=== PATIENT | female | born 1935 | race Caucasian/White ===

== ENCOUNTER 2019-12-27 13:09 | Emergency (ER) | payer MEDICARE ==
[~2019-12-27] VITALS: Ht 170.2 cm; Wt 122.5 kg
[~2019-12-27 13:09] MED LIST: ACTOS45 MG PO; ENALAPRIL MALEA20 MG PO; K DUR10 MEQ PO; LASIX40 MG PO; LEVOTHYROXINE75 MCG PO; LIPITOR10 MG PO; METOPROLOL TART50 MG PO; PLAVIX75 MG PO; VENTOLIN HFA18 GM IH; VERAPAMIL HCL120 MG PO; VICODIN 5-5001 EACH PO; ZETIA10 MG PO
[2019-12-27] MEDS ORDERED: VANCOMYCIN 1GM/NS 250 ML 250 ML IV ONE (14:15)
[2019-12-27 14:30] LABS: BASOPHILS % 0.1 % (0.0-1.0); EOSINOPHILS % 0.1 % (0.0-6.0); HEMATOCRIT 38.7 % (34.2-44.1); HEMOGLOBIN 12.2 g/dL (12.0-16.0); LYMPHOCYTES # (AUTO) 1.4 (1.0-3.2); LYMPHOCYTES % 9.8 % (18.0-39.1); MEAN CORPUSCULAR HEMOGLOBIN 31.3 pg (28-32); MEAN CORPUSCULAR HGB CONC 31.5 g/dL (31-35); MEAN CORPUSCULAR VOLUME 99.2 fL (81-99); MONOCYTES # (AUTO) 1.1 (0.2-0.8); MONOCYTES % 7.6 % (4.4-11.3); NEUTROPHILS # (AUTO) 11.6 (2.1-6.9); NEUTROPHILS % 81.5 % (38.7-80.0); PLATELET COUNT 215 x10e3/uL (140-360)
[2019-12-27 14:37] LABS: INR 0.95; PARTIAL THROMBOPLASTIN TIME 23.4 seconds (23.8-35.5); PROTHROMBIN TIME 13.1 seconds (11.9-14.5)
[2019-12-27 14:48] LABS: ALBUMIN/GLOBULIN RATIO 1.3 (0.8-2.0); ANION GAP 18.8 mmol/L (8-16); CALCIUM 9.9 mg/dL (8.4-10.2); CREATININE, SERUM 1.24 mg/dL (0.57-1.11); POTASSIUM 3.8 mmol/L (3.5-5.1)
--- OUTSIDE RECORDS SUMMARY | 2019-12-27 16:16 | XMS REPORT | Clinical Summary ---
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 Active Problems Not on file Encounters Care Team Description Date Type Specialty Brandyn Reece DO Lumbar radiculopathy, chronic (Primary D x); Acute left flank pain 03/01/2019 Emergency Emergency Medicine after 12/26/2018 Social History Date Tobacco Use Types Packs/Day Years Used Current Every Day Smoker Smokeless Tobacco: Never Used Drinks/Week oz/Week Comments Alcohol Use Never Alcohol Habits Answer Date Recorded How often do you have a drink containing alcohol? Never 03/01/2019 How many drinks containing alcohol do you have on No t asked a typical day when you are drinking? How often do you have six or more drinks on one Not asked occasion? Sex Assigned at Date Recorded Not on file Industry Job Start Date Occupation Not on file Not on file Not on file Travel End Travel History Travel Start No recent travel history available. Last Filed Vital Signs Reading Time Taken Comments Vital Sign 148/72 03/01/2019 7:17 PM CLIENT INSIGHTS CONSULTANT Blood Pressure 88 03/01/2019 7:17 PM CLIENT INSIGHTS CONSULTANT Pulse 36.2 C (97.1 F) 03/01/2019 3:30 PM CLIENT INSIGHTS CONSULTANT Temperature 20 03/01/2019 7:17 PM CLIENT INSIGHTS CONSULTANT Respiratory Rate 97% 03/01/2019 7:17 PM CLIENT INSIGHTS CONSULTANT Oxygen Saturation - - Inhaled Oxygen Concentration 66.2 kg (146 lb) 03/01/2019 3:28 PM CLIENT INSIGHTS CONSULTANT Weight 170.2 cm (5' 7") 03/01/2019 3:28 PM CLIENT INSIGHTS CONSULTANT Height 22.87 03/01/2019 3:28 PM CLIENT INSIGHTS CONSULTANT Body Mass Index Plan of Treatment Health Maintenance Due Date Last Done Comments DIABETIC RETINAL EYE EXAM 1937 DIABETIC FOOT EXAM 1947 URINE MICROALBUMIN 1947 SHINGLES VACCINES (#1) 1987 65+ PNEUMOCOCCAL VACCINE 2002 (1 of 2 - PCV13) INFLUENZA VACCINE 01/23/2020 Procedures Comments Procedure Name Priority Date/Time Associated Diag nosis URINALYSIS SCREEN AND STAT 03/01/2019 MICROSCOPY, WITH REFLEX 7:15 PM CLIENT INSIGHTS CONSULTANT TO CULTURE CT RENAL STONE PROTOCOL STAT 03/01/2019 6:56 PM CLIENT INSIGHTS CONSULTANT ESTIMATED GFR STAT 03/01/2019 4:14 PM CLIENT INSIGHTS CONSULTANT LIPASE LEVEL STAT 03/01/2019 4:14 PM CLIENT INSIGHTS CONSULTANT COMPREHENSIVE METABOLIC STAT 03/01/2019 PANEL 4:14 PM CLIENT INSIGHTS CONSULTANT HC COMPLETE BLD COUNT STAT 03/01/2019 W/AUTO DIFF 4:14 PM CLIENT INSIGHTS CONSULTANT after 12/26/2018 Results * Urinalysis screen and microscopy, with reflex to culture (03/01/2019 7:15 PM CLIENT INSIGHTS CONSULTANT) Specimen site Clean catch [facility] Color, UA Yellow [facility] Appearance, UA Clear [facility] Specific 1.014 1.001 - 1.035 [place] gravity, [facility] pH, UA 8.0 5.0 - 8.5 [facility] Protein, UA Negative Negative [facility] Glucose, UA Negative Negative [facility] Ketones, UA Negative Negative [facility] Bilirubin, UA Negative Negative [facility] Blood, UA Negative Negative [facility] Nitrite, UA Negative Negative [facility] Urobilinogen, Negative <2.0 [facility] Leukocyte Negative Negative [place] esterase, UA [facility] Epithelial Few /HPF [place] cells, UA [facility] WBC, UA 1 0 - 5 /HPF [facility] RBC, UA 1 0 - 5 /HPF [facility] Bacteria, UA Trace None seen [facility] Yeast, UA None seen [facility] Yeast with None seen [place] pseudohyphae, [facility] Specimen Urine Performing Organization Address City/State/Zipcode Ph one Number [facility] [address] [place] [address] PATHOLOGY AND GENOMIC MEDICINE [facility] [address] * CT Renal Stone Protocol (03/01/2019 6:56 PM CLIENT INSIGHTS CONSULTANT) Specimen Narrative Performed At EXAMINATION: CT RENAL STONE PROTOCOL RADIANT CLINICAL HISTORY: Flank pain stone disease suspected, new onset left flank pain TECHNIQUE: Multiple axial images of the abdomen and pelvis were obtained without intravenous administration of iodinated contrast. Sagittal and coronal computerized reformatted images were al so obtained. The lack of intravenous contrast reduces the sensitivity of detecting solid organ di sease.Automatic exposure control and iterative reconstruction techniques use d to reduce dose. COMPARISON: None. FINDINGS: L2 millimeters stone in the gallbladder . No acute cholecystitis The liver, spleen, pancreas adrenals an d kidneys are within normal limits No significant lymphadenopathy free flu id present The small bowel and colon are within no rmal limits Pelvis: No significant lymphadenopathy solid ma sses or free fluid present Lung bases are clear Age related changes are present through out the bony structures without evidence of a suspicious focal lesion. Mild calcified atherosclerotic vascular disease throughout the arterial structures. IMPRESSION: Cholelithiasis without cholecystitis [facility]-[id number] Procedure Note Interface, Radiology Results Incoming - 03/01/2019 7:01 PM CLIENT INSIGHTS CONSULTANT EXAMINATION: CT RENAL STONE PROTOCOL CLINICAL HISTORY: Flank pain stone disease suspected, new onset left flank pain TECHNIQUE: Multiple axial images of the abdomen and pelvis were obtained without intravenous administration of iodinated contrast. Sagittal and coronal computerized reformatted images were also obtained. The lack of intravenous contrast reduces the sensitivity of detecting solid organ disease.Automatic exposure control and iterative reconstruction techniques used to reduce dose. COMPARISON: None. FINDINGS: L2 millimeters stone in the gallbladder. No acute cholecystitis The liver, spleen, pancreas adrenals and kidneys are within normal limits No significant lymphadenopathy free fluid present The small bowel and colon are within normal limits Pelvis: No significant lymphadenopathy solid masses or free fluid present Lung bases are clear Age related changes are present throughout the bony structures without evidence of a suspicious focal lesion. Mild calcified atherosclerotic vascular disease throughout the arterial structures. IMPRESSION: Cholelithiasis without cholecystitis [facility]-[id number] Performing Organization Address City/[facility] Ph one Number [facility] [address] [place] [address] * Estimated GFR (03/01/2019 4:14 PM CLIENT INSIGHTS CONSULTANT) Estimated GFR 42 (A) mL/min/1.73 m2 [place] Comment: [facility] G1 >=90 Normal or high G2 60-89 Mildly decreased G3a 45-59 Mildly to moderately decreased G3b 30-44 Moderately to severely decreased G4 15-29 Severely decreased G5 <15 Kidney failure The eGFR was calculated using the Chronic Kidney Disease Epidemiology Collaboration (CKD-EPI) equation. Interpretation is based on recommendations of the National Kidney Foundation-Kidney Disease Outcomes Quality Initiative (NKF-KDOQI) published in 2014. Specimen Plasma specimen Performing Organization Address City/[facility] Ph one Number [facility] [address] [place] [address] PATHOLOGY AND GENOMIC MEDICINE [facility] [address] [facility] [address] * CBC with platelet and differential (03/01/2019 4:14 PM CLIENT INSIGHTS CONSULTANT) WBC 8.2 4.2 - 11.0 k/uL [facility] RBC 4.24 4.04 - 5.86 m/uL [facility] HGB 13.8 11.5 - 15.3 g/dL [facility] HCT 43.7 34.0 - 45.0 % [facility] MCV 103.1 (H) 80.0 - 98.0 fL [facility] MCH 32.5 27.0 - 34.0 pg [facility] MCHC 31.6 31.5 - 36.5 g/dL [facility] RDW - SD 49.7 37.0 - 51.0 fL [facility] MPV 11.2 (H) 7.4 - 10.4 fL [facility] Platelet count 168 150 - 400 k/uL [facility] Nucleated RBC 0.00 /100 WBC [facility] Neutrophils 52.3 36.0 - 66.0 % [facility] Lymphocytes 35.2 24.0 - 44.0 % [facility] Monocytes 9.5 (H) 0.0 - 6.0 % [facility] Eosinophils 1.8 0.0 - 6.0 % [facility] Basophils 0.8 0.0 - 1.2 % [facility] Immature 0.4 0.0 - 1.0 % [place] granulocytes [facility] Specimen Blood Performing Organization Address City/[facility] Ph one Number [facility] [address] [place] [address] PATHOLOGY AND GENOMIC MEDICINE [address] * Lipase level (03/01/2019 4:14 PM CLIENT INSIGHTS CONSULTANT) [facility] Lipase 48 13 - 60 U/L [facility] Specimen Plasma specimen Performing Organization Address City/[facility] Ph one Number [facility] [address] [place] [address] PATHOLOGY AND GENOMIC MEDICINE [address] * Comprehensive metabolic panel (03/01/2019 4:14 PM CLIENT INSIGHTS CONSULTANT) [facility] Sodium 143 135 - 150 mEq/L [facility] Potassium 4.2 3.5 - 5.0 mEq/L [facility] Chloride 105 98 - 112 mEq/L [facility] CO2 26 24 - 31 mmol/L [facility] Anion gap 12@ANIO 7 - 15 mEq/L [facility] BUN 27 (H) 7 - 18 mg/dL [facility] Creatinine 1.20 (H) 0.50 - 0.90 mg/dL [facility] Glucose 101 (H) 65 - 100 mg/dL [facility] Calcium 11.3 (H) 8.8 - 10.2 mg/dL [facility] Protein 7.2 6.3 - 8.3 g/dL [facility] Albumin 3.7 3.5 - 5.0 g/dL [facility] A/G ratio 1.1 0.7 - 3.8 [facility] Alkaline 82 0 - 104 U/L [place] phosphatase [facility] AST 27 10 - 35 U/L [facility] ALT 35 5 - 50 U/L [facility] Total bilirubin <0.3 0.2 - 1.2 mg/dL [facility] Specimen Plasma specimen Performing Organization Address City/State/[facility] Ph one Number [facility] [address] [place] [id number] PATHOLOGY AND GENOMIC MEDICINE [place] [address] [place] [address] HOSPITAL after 12/26/2018 Insurance Type Payer Benefit Subscriber ID Effective Phone Address Plan / Dates Group HMO [employer] CIGNA xxxxxxxxxxx [id number] HEALTHSPRI resent NG O MCR [id number] Advance Directives For more information, please contact: [phone] 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
--- NOTE | 2019-12-27 16:26 | Emergency Department Note ---
History of Present Illnes History of Present Illness Chief Complaint: Extremity Trauma/Pain History of Present Illness This is a 84 year old female Patient in from home with redness swelling and pain to her right great toe and left 3rd toe. Patient reports that she saw her PCP and was given antibiotics for 10 days and prednisone for 3 days with little to no improvement. Patient reports that the toes began to look this way about 2 weeks ago. Patient states that her pain is 8/10 when walking. She says she picked her right great toenail off instead of using clippers and ripped it. Her left 3rd toe she put a needle in a blister, now red/warm Historian: Patient Arrival Mode: Car Clothes Wringer Required: No Onset (how long ago): day(s) Radiation: Reports non-radiation Severity: moderate Onset quality: gradual Timing of current episode: constant Chronicity: new Context: Denies recent illness Relieving factors: none Exacerbating factors: none Associated symptoms: Reports denies other symptoms Past Medical/Family History Physician Review I have reviewed the patient's past medical and family history. Any updates have been documented here. Past Medical History Recent Fever: No Clinical Suspicion of Infectio: Yes New/Unexplained Change in Ment: No Past Medical History: Hypertension, CHF, Hypothyroidism, Depression, Chronic Back Pain Other Medical History: gout Past Surgical History: Cholecysctectomy, Appendectomy, Hysterectomy, PCI, Knee Replacement, Lumpectomy Other Surgery: bone spur removal from heel Social History Smoking Cessation: Never Smoker Counseling Performed: No Alcohol Use: None Any Illegal Drug Use: No TB Exposure/Symptoms: No Physically hurt or threatened: No Family History Family history of heart diseas: No Other Any Pre-Existing Lines (PICC,: No Review of Systems Review of Systems Constitutional: Reports no symptoms EENTM: Reports no symptoms Cardiovascular: Reports no symptoms Respiratory: Reports no symptoms Gastrointestinal: Reports no symptoms Genitourinary: Reports no symptoms Musculoskeletal: Reports no symptoms Integumentary: Reports as per HPI Neurological: Reports no symptoms Psychological: Reports no symptoms Endocrine: Reports no symptoms Hematological/Lymphatic: Reports no symptoms Physical Exam Related Data Allergies: Coded Allergies: Penicillins (Verified Allergy, Severe, BLACK OUT, 09/20/12) Sulfa (Sulfonamide Antibiotics) (Verified Allergy, Intermediate, WHELPS, 09/20/12) Tetracyclines (Verified Allergy, Intermediate, WHELPS, 09/20/12) Uncoded Allergies: CYCLINE DRUGS (Allergy, Intermediate, WHELPS, 09/13/12) Triage Vital Signs Vital Signs Date Time Temp Pulse Resp B/P (MAP) Pulse Ox O2 Delivery O2 Flow Rate FiO2 12/27/19 13:41 98.1 61 17 147/48 100 Room Air Vital signs reviewed: Yes Physical Exam CONSTITUTIONAL Constitutional: Present well-developed, Present well-nourished HENT HENT: Present normocephalic, Present atraumatic, Present oropharynx clear/moist, Present nose normal HENT L/R: Present left ext ear normal, Present right ext ear normal EYES Eyes: Reports PERRL, Reports conjunctivae normal NECK Neck: Present ROM normal PULMONARY Pulmonary: Present effort normal, Present breath sounds normal CARDIOVASCULAR Cardiovascular: Present regular rhythm, Present heart sounds normal, Present capillary refill normal, Present normal rate GASTROINTESTINAL Abdominal: Present soft, Present nontender, Present bowel sounds normal GENITOURINARY Genitourinary: Present exam deferred SKIN Skin: Present other (right great toe paronychia/cellulitis, left 3rd toe with small abrasion/cellulitis) MUSCULOSKELETAL Musculoskeletal: Present ROM normal NEUROLOGICAL Neurological: Present alert, Present oriented x 3, Present no gross motor or sensory deficits PSYCHOLOGICAL Psychological: Present mood/affect normal, Present judgement normal Results Laboratory Result Diagram: 12/27/19 1306 12/27/19 1306 Laboratory Laboratory Tests Test 12/27/19 13:06 White Blood Count 14.26 x10e3/uL (4.8-10.8) Red Blood Count 3.90 x10e6/uL (3.6-5.1) Hemoglobin 12.2 g/dL (12.0-16.0) Hematocrit 38.7 % (34.2-44.1) Mean Corpuscular Volume 99.2 fL (81-99) Mean Corpuscular Hemoglobin 31.3 pg (28-32) Mean Corpuscular Hemoglobin Concent 31.5 g/dL (31-35) Red Cell Distribution Width 14.0 % (11.7-14.4) Platelet Count 215 x10e3/uL (140-360) Neutrophils (%) (Auto) 81.5 % (38.7-80.0) Lymphocytes (%) (Auto) 9.8 % (18.0-39.1) Monocytes (%) (Auto) 7.6 % (4.4-11.3) Eosinophils (%) (Auto) 0.1 % (0.0-6.0) Basophils (%) (Auto) 0.1 % (0.0-1.0) Neutrophils # (Auto) 11.6 (2.1-6.9) Lymphocytes # (Auto) 1.4 (1.0-3.2) Monocytes # (Auto) 1.1 (0.2-0.8) Eosinophils # (Auto) 0.0 (0.0-0.4) Basophils # (Auto) 0.0 (0.0-0.1) Absolute Immature Granulocyte (auto 0.13 x10e3/uL (0-0.1) Prothrombin Time 13.1 seconds (11.9-14.5) Prothromb Time International Ratio 0.95 Activated Partial Thromboplast Time 23.4 seconds (23.8-35.5) Sodium Level 143 mmol/L (136-145) Potassium Level 3.8 mmol/L (3.5-5.1) Chloride Level 106 mmol/L (98-107) Carbon Dioxide Level 22 mmol/L (22-29) Anion Gap 18.8 mmol/L (8-16) Blood Urea Nitrogen 34 mg/dL (7-26) Creatinine 1.24 mg/dL (0.57-1.11) Estimat Glomerular Filtration Rate 41 ML/MIN (60-) BUN/Creatinine Ratio 27 (6-25) Glucose Level 127 mg/dL (74-118) Calcium Level 9.9 mg/dL (8.4-10.2) Total Bilirubin 0.3 mg/dL (0.2-1.2) Aspartate Amino Transf (AST/SGOT) 16 IU/L (5-34) Alanine Aminotransferase (ALT/SGPT) 20 IU/L (0-55) Alkaline Phosphatase 70 IU/L (40-150) Total Protein 7.2 g/dL (6.5-8.1) Albumin 4.0 g/dL (3.5-5.0) Globulin 3.2 g/dL (2.3-3.5) Albumin/Globulin Ratio 1.3 (0.8-2.0) Lab results reviewed: Yes Assessment & Plan Medical Decision Making MDM check cbc, chem, bld cx's - r/o leukocytosis, electrolyte abnl, cellulitis Reassessment Reassessment I spoke with Dr Bianchi - he suggests giving Zyvox 600 q12hr x 10 days, will F/U in clinic Assessment & Plan Final Impression: (1) Cellulitis Depart Disposition: HOME, SELF-CARE Last Vital Signs Date Time Temp Pulse Resp B/P (MAP) Pulse Ox O2 Delivery O2 Flow Rate FiO2 12/27/19 15:39 50 16 142/47 100 Room Air 12/27/19 13:41 98.1 Home Meds Reported Medications Atorvastatin Calcium* (LIPITOR*) 10 Mg Tablet, 20 MG PO DAILY 09/14/12 Metoprolol Tartrate (METOPROLOL TARTRATE) 50 Mg Tablet, 50 MG PO DAILY 09/14/12 Verapamil Hcl (VERAPAMIL HCL) 120 Mg Tablet, 120 MG PO DAILY 09/14/12 Enalapril Maleate (ENALAPRIL MALEATE) 20 Mg Tablet, 20 MG PO DAILY 09/14/12 Levothyroxine Sodium (LEVOTHYROXINE SODIUM) 75 Mcg Tablet, 75 MG PO DAILY 09/14/12 Pioglitazone Hcl (ACTOS) 45 Mg Tablet, 45 MG PO DAILY 09/14/12 Potassium Chloride* (K DUR*) 10 Meq Tabcr, 20 MEQ PO DAILY 09/14/12 Furosemide (LASIX) 40 Mg Tablet, 40 MG PO 2XW 09/14/12 Albuterol Sulfate (VENTOLIN HFA) 18 Gm Hfa.aer.ad, 90 MCG IH BID 09/14/12 Ezetimibe (ZETIA) 10 Mg Tablet, 10 MG PO HS 09/14/12 Hydrocodone Bit/Acetaminophen* (VICODIN 5-500 TABLET*) 1 Each Tablet, MG PO DAILY 09/14/12 Clopidogrel Bisulfate* (PLAVIX) 75 Mg Tablet, 75 MG PO DAILY 09/14/12 Medications in the ED Vancomycin HCl 250 ml @ 166.667 mls/hr NOW ONCE IV Last administered on 12/27/19at 14:36; Admin Dose 166.667 MLS/HR; Start 12/27/19 at 14:15; Stop 12/27/19 at 15:44; Status DC JUVENCIO DURAN MD Dec 27, 2019 16:26
== END 2019-12-27 16:40 | disposition home or self-care (01) ==
LOC: ER 13:59
DX: L03.032 Cellulitis of left toe (principal); L03.031 Cellulitis of right toe; I10 Essential (primary) hypertension; I50.9 Heart failure, unspecified; E03.9 Hypothyroidism, unspecified; F32.9 Major depressive disorder, single episode, unspecified; M54.9 Dorsalgia, unspecified; G89.29 Other chronic pain
CPT/HCPCS: 36415; 80053; 85025; 85610; 85730; 87040; 99284; J3370